=== PATIENT | male | born 1985 | race Hispanic/Latino ===

== ENCOUNTER 2022-01-21 22:22 | Emergency (ER) | payer OTHER ==
[~2022-01-21] VITALS: Ht 170.2 cm; Wt 84.4 kg
[2022-01-21 22:24] VITALS: BP 123/68
[2022-01-21] MEDS ORDERED: ACET-2247 PO (22:46)
[2022-01-21] MEDS ORDERED: DSSL AU (22:46)
[2022-01-21] MEDS ORDERED: ACETAMINOPHEN 500 MG TABLET PO ONE (23:00)
== END 2022-01-21 22:54 | disposition home or self-care (01) ==
LOC: EDH 22:22
DX: H61.23 Impacted cerumen, bilateral (principal)
CPT/HCPCS: 99282